=== PATIENT | female | born 1935 | race Caucasian/White ===

== ENCOUNTER → 2016-05-17 | Outpatient (CLI) | payer MEDICARE, OTHER ==
[~2016-05-17] MED LIST: ASPIRIN PO; ASPIRIN81 MG PO; CELEBREX PO; COUMADIN PO; DARVOCET-N 1001 TAB PO; HCTZ PO; HYDROCODONE-APA1 T56 PO; LISINOPRIL10 MG PO; LOPRESSOR PO; METOPROLOL PO; NORVASC PO; PREMARIN PO; TOPROL XL PO
--- NOTE | ~2016-05-17 | MY11 ---
[facility] A Service of [facility] RADIOLOGY TEXT RESULTS PATIENT: VERITO BRIONES LOCATION: [facility] : 33 UNIT #: [id number] AGE: [address]: Brit Mart APRN SEX: F ORDER DR: [id number] [place] [id number] P MR#: [id number] Acc #: [id number] NAME: VERITO BRIONES : 1935 SEX: F STUDY DATE/TIME: 05/17/2016 13:15 UNIT: [facility] ROOM: STUDY DESCRIPTION: MY Mammogram Screening Dig [place] Attending Physician: Brit Mart A.P.R.N. Referring Physician: Brit Mart A.P.R.N. Ordering Physician: Brit Mart A.P.R.N. Primary Care Physician: Mayra Grewal M.D. MEDICAL IMAGING REPORT This report is preliminary unless electronic signature is present. EXAM Bilateral Digital Screening Mammogram with CAD INDICATION Breast cancer screening. 81-year-old asymptomatic female with no personal or family history of breast cancer. COMPARISON 03/03/2012, 04/16/2010, 02/05/2008, 02/03/2006, 12/09/2004 FINDINGS The breasts are almost entirely fatty. No suspicious findings are present. IMPRESSION No mammographic evidence of malignancy. Annual screening mammography and clinical breast exam are recommended. A result letter will be sent to the patient. Patients over the age of 40 are entered into a reminder system with target due date for the next mammogram. BIRADS: 1 Negative Dictated by... Issac Douglass M.D. THIS IS AN ELECTRONICALLY VERIFIED REPORT Issac Douglass M.D. at 05/19/2016 10:54 AM BLM/to [facility] A Service of [facility] RADIOLOGY TEXT RESULTS PATIENT: VERITO BRIONES LOCATION: [facility] : 34 UNIT #: [id number] AGE: [address]: Brit Mart APRN SEX: F ORDER DR: TD: 05/17/2016 16:39 JOB #: [id number] MEDICAL IMAGING REPORT Page 1 of 1
== END | disposition home or self-care (01) ==
LOC: SMAM 07:29
DX: Z12.31 Encounter for screening mammogram for malignant neoplasm of breast (principal)
CPT/HCPCS: G0202

== ENCOUNTER → 2016-10-01 | Outpatient (CLI) | payer MEDICARE, OTHER ==
--- NOTE | ~2016-10-01 | US37 ---
[facility] A Service of [facility] RADIOLOGY TEXT RESULTS PATIENT: VERITO BRIONES LOCATION: [facility] : 34 UNIT #: [id number] AGE: [address]: Brit Mart APRN SEX: F ORDER DR: [id number] [address] [address] [id number] O MR#: [id number] Acc #: [id number] NAME: VERITO BRIONES : 1935 SEX: F STUDY DATE/TIME: 10/01/2016 10:01 UNIT: [facility] ROOM: STUDY DESCRIPTION: US Carotid W/Doppler Bilateral Attending Physician: Brit Mart A.P.R.N. Referring Physician: Brit Mart A.P.R.N. Ordering Physician: Brit Mart A.P.R.N. Primary Care Physician: Mayra Grewal M.D. MEDICAL IMAGING REPORT This report is preliminary unless electronic signature is present. EXAM Bilateral carotid duplex HISTORY Syncope. FINDINGS Duplex imaging of the carotids were performed. The right common carotid artery is patent. Heterogeneous plaque which is hyperechoic is seen in the right internal carotid artery at the origin. Velocity in the right common carotid is 16, internal is 88, and external 85 cm/sec. Right ICA/CCA ratio is 1.4. On the left side, the common carotid artery is patent. Mild plaque which is hyperechoic is seen in the left internal carotid artery bulb and the origin of the internal carotid artery. Velocity in the left common carotid artery is 76, internal is 106, external is 119 cm/sec. Left ICA/CCA ratio is 1.4. Antegrade flow is seen in the right and left vertebral arteries. IMPRESSION Plaque with less than 50% stenosis is seen in the right and left internal carotid arteries. Antegrade flow is seen in the right and left vertebral arteries. Dictated by... Herson Carlisle M.D. THIS IS AN ELECTRONICALLY VERIFIED REPORT [facility] A Service of [facility] RADIOLOGY TEXT RESULTS PATIENT: VERITO BRIONES LOCATION: [facility] : 33 UNIT #: [id number] AGE: [address]: Brit Mart APRN SEX: F ORDER DR: Herson Carlisle M.D. at 10/06/2016 9:59 AM /nikki TD: 10/02/2016 09:06 JOB #: [id number] MEDICAL IMAGING REPORT Page 1 of 1
== END | disposition home or self-care (01) ==
LOC: SNIV 09:49
DX: R55 Syncope and collapse (principal); I65.23 Occlusion and stenosis of bilateral carotid arteries
CPT/HCPCS: 93880